=== PATIENT | female | born 1965 | race Caucasian/White ===

== ENCOUNTER 2017-07-17 22:30 | Emergency (ER) | payer OTHER ==
[~2017-07-17] VITALS: Ht 170.2 cm; Wt 198.0 kg
[2017-07-17 22:30] VITALS: BP 121/79; PULSE 108; RESP 18; TEMP 98.5; O2SAT 97
[~2017-07-17 22:30] MED LIST: ALBU6.7H INH; OMEP20CA5 PO; PROM25SU8 PO; VENL75TA91 PO
[2017-07-17] MEDS ORDERED: VENL25TA PO (22:41)
[2017-07-17] MEDS ORDERED: DICL1CAP3 PO (22:41)
[2017-07-17] MEDS ORDERED: AMLO5TAB2 PO (22:41)
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
[2017-07-18 01:43] VITALS: BP 137/72
== END 2017-07-18 01:45 | disposition home or self-care (01) ==
LOC: PHED 22:30
DX: T70.0XXA Otitic barotrauma, initial encounter (principal); S90.32XA Contusion of left foot, initial encounter; S29.012A Strain of muscle and tendon of back wall of thorax, initial encounter; V49.9XXA Car occupant (driver) (passenger) injured in unspecified traffic accident, initial encounter
CPT/HCPCS: 72040; 73030; 73630; 99284